=== PATIENT | male | born 1970 | race Caucasian/White ===

== ENCOUNTER 2016-04-14 04:52 | Emergency (ER) | payer OTHER ==
[~2016-04-14] VITALS: Ht 177.8 cm; Wt 81.8 kg
[~2016-04-14 04:52] MED LIST: HYDR-3498 PO; ONDA-43 PO; RANI150T9 PO
[2016-04-14 04:56] VITALS: Ht 177.8 cm; Wt 81.8 kg
[2016-04-14] MEDS ORDERED: LIDOCAINE/MYLANTA 40 ML BTL PO STA (04:57)
[2016-04-14] MEDS ORDERED: HYDROmorphONE 1 MG/ML SYG IV STA (04:57)
[2016-04-14] MEDS ORDERED: ONDANSETRON 4 MG INJ IV STA (04:57)
[2016-04-14] MEDS ORDERED: SOD CHLORIDE 0.9% 1,000 ML IV STA (04:57)
[2016-04-14] MEDS ORDERED: LIDOCAINE 2% VISC 15 ML CUP PO ONE (05:00)
[2016-04-14 05:37] LABS: BASOPHILS % 0.4 % (0.0-2.0); EOSINOPHILS # 0.2 10^3/ul (0.0-0.5); EOSINOPHILS % 1.9 % (0.0-7.0); HEMOGLOBIN 15.5 g/dl (14.0-18.0); LYMPHOCYTES # 1.4 10^3/ul (0.8-2.9); LYMPHOCYTES % 16.8 % (15.0-51.0); MEAN CORPUSCULAR HEMOGLOBIN 30.1 pg (29.0-33.0); MEAN CORPUSCULAR HGB CONC 34.6 g/dl (32.0-37.0); MEAN PLATELET VOLUME 8.9 fl (7.4-10.4); MONOCYTE # 0.5 10^3/ul (0.3-0.9); MONOCYTES % 6.4 % (0.0-11.0); NEUTROPHIL # 6.2 10^3/ul (1.6-7.5); NEUTROPHILS % 74.5 % (39.0-77.0); PLATELET COUNT 206 10^3/UL (140-440); RED BLOOD COUNT 5.17 10^6/ul (4.70-6.10); RED CELL DISTRIBUTION WIDTH 13.7 % (11.5-14.5); UNCORRECTED WBC 8.3 10^3/ul (4.8-10.8); WHITE BLOOD COUNT 8.3 10^3/ul (4.8-10.8)
--- NOTE | 2016-04-14 05:41 | ERA ---
ER Documentation Chief Complaint Date/Time DATE: 04/14/16 TIME: 05:35 Chief Complaint Bilateral Upper abd pain that woke pt from sleep HPI This is a 45-year-old male who is awoke from sleep approximately 30 minutes prior to arrival with epigastric severe pain. He describes the pain as achy and constant and nonradiating he says he has no nausea vomiting or diarrhea. Says he has no chest pain or shortness of breath diaphoresis or pain in the elbows or shoulders. Denies having this pain before. He said he had eaten beef jerky and pizza a few hours before the pain started ROS All systems reviewed and are negative except as per history of present illness. Medications Home Meds Active Scripts Ondansetron Hcl* (Zofran*) 4 Mg Tab, 4 MG PO Q6H Y for NAUSEA AND OR VOMITING, # 10 TAB Prov:JEFFREY DAVIS 02/23/15 Hydrocodone Bit-Acetaminophen* ([place]*) 5-325 Mg Tab, 1-2 TAB PO Q4H Y for PAIN , #10 TAB Prov:JEFFREY DAVIS 02/23/15 Ranitidine Hcl* (Zantac*) 150 Mg Tablet, 150 MG PO BID Y for gi, #30 TAB Prov:JEFFREY DAVIS 02/23/15 Allergies Allergies: Coded Allergies: No Known Drug Allergy (Verified Allergy, Unknown, 02/23/15) PMhx/Soc History of Surgery: Yes (appendix) Anesthesia Reaction: No Hx Neurological Disorder: No Hx Respiratory Disorders: No Hx Cardiac Disorders: No Hx Psychiatric Problems: No Hx Miscellaneous Medical Probl: Yes (Kidney stones) Hx Alcohol Use: No Hx Substance Use: No Hx Tobacco Use: Yes Smoking Status: Current every day smoker FmHx Family History: No coronary disease Physical Exam Vitals Vital Signs Date Time Temp Pulse Resp B/P Pulse Ox O2 Delivery O2 Flow Rate FiO2 04/14/16 04:56 98.5 64 18 153/103 100 Physical Exam Const: Well-developed, well-nourished Head: Atraumatic, normocephalic Eyes: Normal Conjunctiva, PERRLA, EOMI, normal sclera, no nystagmus ENT: Normal External Ears, Nose and Mouth, moist mucus membranes. Neck: Full range of motion. No meningismus, no lymphadenopathy. Resp: Clear to auscultation bilaterally, no wheezing, rhonchi, rales Cardio: Regular rate and rhythm, no murmurs, S1 S2 present Abd: Soft, moderate to severe epigastric tenderness, non distended. Normal bowel sounds, no guarding or rebound, no pulsitile abdominal masses or bruits Skin: No petechiae or rashes, no ecchymosis , no maculopapular rash Back: No midline or flank tenderness Ext: No cyanosis, or edema, FROM x 4, normal inspection, neurovascularly intact x 4 Neur: Awake and alert, STR 5/5 x 4, sensation intact x 4, no focal findings, cerebellum intact Psych: Normal Mood and Affect Results 24 hrs Current Medications Medications (Trade) Dose Ordered Sig/Liudmila Route PRN Reason Start Time Stop Time Status Last Admin Dose Admin Sodium Chloride (NS) 1,000 ml @ 1,000 mls/hr Q1H STAT IV 04/14/16 04:57 04/14/16 05:56 04/14/16 05:25 Hydromorphone HCl (Dilaudid) 1 mg ONCE STAT IV 04/14/16 04:57 04/14/16 04:58 04/14/16 05:32 Ondansetron HCl (Zofran Inj) 4 mg ONCE STAT IV 04/14/16 04:57 04/14/16 04:58 04/14/16 05:25 Miscellaneous Medication (Gi Cocktail (2)) 40 ml ONCE STAT PO 04/14/16 04:57 04/14/16 04:58 04/14/16 05:13 Lidocaine (Xylocaine (Viscous)) 15 ml ONCE ONCE PO 04/14/16 05:00 04/14/16 05:01 04/14/16 05:13 Procedures/MDM EKG: Rate/Rhythm: Normal sinus rhythm, inverted T-wave in lead V1 and V2 QRS, ST, QT: NORMAL MI, QRS, QT] Impression: NORMAL EKG Patient received a GI cocktail and shortly thereafter had vomited. He was then given Dilaudid 1 mg IV and Zofran 4 mg IV Differential includes gastritis, cardiac, peptic ulcer disease, gallstones, biliary colic or pancreatitis He is awaiting laboratory evaluation and ultrasound and reevaluation/ disposition which will be done by oncoming ER physician Departure Diagnosis: Primary Impression: Abdominal pain Qualified Code: R10.13 - Epigastric pain Condition: Stable ISAEL RANGEL DO Apr 14, 2016 05:41
[2016-04-14 05:50] LABS: CONDITION 1
[2016-04-14 05:58] LABS: ALBUMIN 3.7 g/dl (3.3-4.9)
[2016-04-14 06:01] LABS: ALANINE AMINOTRANSFERASE 24 IU/L (13-69); ALBUMIN/GLOBULIN RATIO 1.12; ALKALINE PHOSPHATASE 110 IU/L (42-121); ASPARTATE AMINO TRANSFERASE 19 IU/L (15-46); BILIRUBIN,INDIRECT 0.3 mg/dl (0-1.1); BILIRUBIN,TOTAL 0.3 mg/dl (0.2-1.3); BLOOD UREA NITROGEN 18 mg/dl (7-20); CARBON DIOXIDE 25 mmol/L (21-31); CREATININE 1.37 mg/dl (0.61-1.24); GLUCOSE 109 mg/dl (70-220)
[2016-04-14 06:02] LABS: CALCIUM 9.3 mg/dl (8.4-10.2)
[2016-04-14 06:32] LABS: TROPONIN-I < 0.012 ng/ml (0.00-0.12)
[2016-04-14 06:39] LABS: ANION GAP 12 (8-16)
--- NOTE | 2016-04-14 06:43 | RADRPT ---
PROCEDURE: Ultrasound of the abdomen. CLINICAL INDICATION: Right upper quadrant pain. TECHNIQUE: Sonographic images of the abdomen were performed. COMPARISON: No pertinent prior examinations were submitted for comparison. FINDINGS: Liver: The liver is normal in echogencity and size measuring approximately 16.7 cm. The hepatic vei ns and portal veins are patent with appropriate directional flow. No intrahepatic ductal dilatation is seen. Gallbladder: There are likely some stones within the gallbladder. There is limited visualization o f the gallbladder due to overlying bowel gas. No definite pericholecystic free fluid or gallbladder wall thickening is identified. The common duct measures 4.5 mm. Pancreas: There is limited evaluation of the pancreatic body and tail. The visualized portions of the pancreas are unremarkable. Kidneys: The right kidney measures 10.6 x 4.7 x 5.4 cm. There is normal corticomedullary differenti ation. There is no evidence of renal calculus or hydronephrosis. IVC: The visualized portion of the inferior vena cava is unremarkable. Aorta: Normal in size. Free fluid: None. IMPRESSION: Probable cholelithiasis. RPTAT: HIKT .Gabriel Murcia MD, MD Date Time Electronically viewed and signed by .Gabriel Murcai MD, on 04/14/2016 06:43 .T/
[2016-04-14 06:47] LABS: CHLORIDE 109 mmol/L (97-110); POTASSIUM 4.2 mmol/L (3.5-5.1); SODIUM 142 mmol/L (135-144)
--- NOTE | 2016-04-14 07:28 | QN ---
Documentation Comment Patient endorsed to me at [address] Arvizu. 45-year-old male with a history of ureterolithiasis and renal colic presented to the ED this morning after being awakened from sleep with acute onset of severe, nonradiating, sharp and achy epigastric pain with nausea but no vomiting , diarrhea or constipation. No relief from a GI cocktail which caused an episode of emesis but pain was relieved by Dilaudid 1 mg and Zofran 4 mg IV. Disposition is pending evaluation of labs and abdominal ultrasound. Patient is currently asymptomatic. Pain-free. Normal vital signs. Afebrile. On physical examination he is sleepy but arousable. Lungs are clear without rales or rhonchi. Cardiac regular rhythm without murmur. Abdomen is soft mild epigastric tenderness but no rebound/guarding or signs of peritonitis. Negative Piedra sign. No right or left lower quadrant tenderness. No CVA tenderness. Extremities without swelling or tenderness. Neurologic exam is unremarkable. Labs: CBC and chemistry are essentially normal except for mildly elevated creatinine. Liver function tests are normal. Lipase is normal. EKG is essentially normal. Sinus rhythm with ventricular rate of 64. Normal DE and QRS. No ST-T wave changes, axis deviation or ectopy. Ultrasound consistent with cholelithiasis. No evidence of cholangitis or choledocholithiasis. Refer to the radiology report. No pancreatitis. Presentation consistent with cholelithiasis and biliary colic but an element of gastritis/GERD or peptic ulcer disease is also considered. At 7: 30 a.m. he is doing well. Abdomen is soft and nontender. Tolerating PO's. Stable for discharge with precautionary instructions, appropriate analgesics and outpatient follow-up as documented. OMAR PERKINS MD Apr 14, 2016 07:28
[2016-04-14 07:30] VITALS: BP 135/95; PULSE 65; RESP 18; TEMP 98.1
[2016-04-14] MEDS ORDERED: ONDA4TAB14 PO (07:32)
[2016-04-14] MEDS ORDERED: PANT40TA3 PO (07:32)
[2016-04-14] MEDS ORDERED: HYDR-902 PO (07:32)
== END 2016-04-14 07:45 | disposition home or self-care (01) ==
LOC: E/R 04:52
DX: R10.13 Epigastric pain (principal); F17.210 Nicotine dependence, cigarettes, uncomplicated
CPT/HCPCS: 36415; 76705; 80053; 83690; 84484; 85025; 93005; 96374; 96375; J1170; J2405; J7030; Z7502; Z7610